=== PATIENT | female | born 1990 | race Caucasian/White ===

== ENCOUNTER 2016-12-13 11:28 | Emergency (ER) | payer OTHER ==
[~2016-12-13] VITALS: Ht 175.3 cm; Wt 60.0 kg
[2016-12-13 11:31] VITALS: BP 121/81; PULSE 83; RESP 18; TEMP 98.1; O2SAT 100
--- NOTE | 2016-12-13 12:22 | PD ---
HPI Chief Complaint: Respiratory Symptoms Time Seen by Provider: 12:11 Travel History International Travel<30 days: No Contact w/Intl Traveler<30days: No Traveled to known affect area: No History of Present Illness HPI Patient is a 25-year-old female presenting to emergency for evaluation after she had a coughing spell this morning and was unable to breathe for approximately 10 seconds. Patient was driving in her car, stopped at a stoplight when she had a coughing spell resulting in the feeling of something being lodged in her throat. She states that for about 10 seconds could not breathe, she then coughed up clear mucus into her hand. Immediately following she was lightheaded, wheezing, felt chest tightness and could not take a deep breath, and this lasted for approximately 20 minutes. Patient went to an urgent care center and was evaluated,patient states that that provider told her she seemed okay but they could not rule out everything and sent her to the emergency department for further evaluation. Patient's past medical history includes ADHD, anxiety. Her primary care provider is Dr. Rasmussen. Patient currently states that she feels fine. PFSH Past Medical History ADHD: Yes Anxiety: Yes LMP: 3 WEEKS AGO Social History Alcohol Use: Yes (occasionally) Tobacco Use: No Substance Use: Yes (marijuana) Allergies-Medications (Allergen,Severity, Reaction): Coded Allergies: No Known Allergies (Unverified , 12/13/16) Reported Meds & Prescriptions Reported Meds & Active Scripts Active Reported Zoloft (Sertraline HCl) 50 Mg Tab 50 Mg PO DAILY Adderall Xr 24 HR (Amphetamine/Dextroamphetamine) 10 Mg Cap 10 Mg PO DAILY Once daily in the morning. Review of Systems Except as stated in HPI: all other systems reviewed are Neg Cardiovascular: Positive: Chest Pain or Discomfort Respiratory: Positive: Shortness of Breath, Wheezing Physical Exam Narrative GENERAL: Well-developed, well-nourished, alert female. Resting comfortably in no acute distress. SKIN: Warm and dry. HEAD: Atraumatic. Normocephalic. EYES: Pupils equal and round. No scleral icterus. No injection or drainage. ENT: No nasal bleeding or discharge. Mucous membranes pink and moist. NECK: Trachea midline. No JVD. CARDIOVASCULAR: Regular rate and rhythm. RESPIRATORY: No accessory muscle use. Clear to auscultation. Breath sounds equal bilaterally. GASTROINTESTINAL: Abdomen soft, non-tender, nondistended. Hepatic and splenic margins not palpable. MUSCULOSKELETAL: Extremities without clubbing, cyanosis, or edema. No obvious deformities. NEUROLOGICAL: Awake and alert. No obvious cranial nerve deficits. Motor grossly within normal limits. Five out of 5 muscle strength in the arms and legs. Normal speech. PSYCHIATRIC: Appropriate mood and affect; insight and judgment normal. Data Data Last Documented VS Vital Signs Date Time Temp Pulse Resp B/P Pulse Ox O2 Delivery O2 Flow Rate FiO2 12/13/16 11:31 98.1 83 18 121/81 100 Orders Complete Blood Count With Diff (12/13/16 12:08) Comprehensive Metabolic Panel (12/13/16 12:08) D-Dimer (12/13/16 12:08) Electrocardiogram (12/13/16 12:08) Chest, Pa & Lat (12/13/16 12:08) Act Partial Throm Time (Ptt) (12/13/16 12:08) Prothrombin Time / Inr (Pt) (12/13/16 12:08) MDM Medical Decision Making Medical Screen Exam Complete: Yes Emergency Medical Condition: Yes Interpretation(s) Vital Signs Date Time Temp Pulse Resp B/P Pulse Ox O2 Delivery O2 Flow Rate FiO2 12/13/16 11:31 98.1 83 18 121/81 100 Differential Diagnosis Bronchospasms versus esophageal stricture versus mucus versus acute coronary syndrome versus pulmonary embolism Narrative Course Patient is a 25-year-old female presented to emergency department after an episode where she was coughing and was unable to breathe for approximately 10 seconds. Patient never lost consciousness, she was able to pull her vehicle over to the side of the road and call her boyfriend. She was wheezing and her voice was raspy but she was breathing. She currently denies any complaints. She has no significant past medical history, no risk factors, she is not on any oral control. EKG, chest x-ray, labs ordered and pending. Patient's vital signs are stable. Chest x-ray is negative for mass, effusion, focal infiltrate. It does show an old clavicle fracture. Patient refused lab draw as well as EKG. Patient is wanting to be discharged. Patient was advised that she would be leaving AGAINST MEDICAL ADVICE as her workup was not complete. Patient was encouraged to have a workup completed and she was sent here on the advice of an urgent care center. Restrict returned cautions. He was also encouraged follow-up with her primary doctor. AMA: The risks of leaving against medical advice without further evaluation treatment were discussed with the patient. These risks include cardiac dysfunction, cardiac dysrhythmia, possible heart attack, possible stroke or . The patient indicated understanding of these risks and appeared to have the capacity to make this decision. Diagnosis Primary Impression: Respiratory symptoms Disposition: 07 AGAINST MEDICAL ADVICE Polly Denny Dec 13, 2016 12:22
--- NOTE | 2016-12-13 12:48 | RADRPT ---
EXAM DATE/TIME: 12/13/2016 12:35 [facility] COMPARISON: No previous studies available for comparison. INDICATIONS : Shortness of breath. MEDICAL HISTORY : None. SURGICAL HISTORY : None. ENCOUNTER: Initial ACUITY: 1 day PAIN SCORE: 0/10 LOCATION: Bilateral chest FINDINGS: PA and lateral views of the chest demonstrate the lungs to be symmetrically aerated without evidence of mass, infiltrate or effusion. The cardiomediastinal contours are unremarkable. Mid shaft right c lavicle fracture, likely old. CONCLUSION: No acute disease. Old right clavicle fracture Malcom Vázquez MD on December 13, 2016 at 12:46 Board Certified Radiologist. This report was verified electronically.
[2016-12-13] MEDS ORDERED: ADDE10XR PO (12:56)
[2016-12-13] MEDS ORDERED: ZOLO50TA PO (12:56)
== END 2016-12-13 13:58 | disposition left against medical advice (07) ==
LOC: NETRI 11:28
DX: R05 Cough (principal); Z53.21 Procedure and treatment not carried out due to patient leaving prior to being seen by health care provider; R42 Dizziness and giddiness; R06.2 Wheezing; R07.89 Other chest pain; F12.90 Cannabis use, unspecified, uncomplicated
CPT/HCPCS: 71020; 99284